=== PATIENT | female | born 1950 | race Caucasian/White ===

== ENCOUNTER 2018-03-04 10:45 | Outpatient (CLI) | payer OTHER ==
[~2018-03-04 10:45] MED LIST: ECOTRIN81 MG PO; HIZAAR; PRILOSEC10 MG PO; [UNRECOGNIZED DRUG - OTHER] PO
== END 2018-03-04 10:47 | disposition home or self-care (01) ==
LOC: SONOGRAMA 10:45
DX: E04.1 Nontoxic single thyroid nodule (principal)

== ENCOUNTER 2021-03-07 09:50 | Outpatient (CLI) | payer OTHER | END 2021-03-07 09:53 | disposition home or self-care (01) | LOC: SONOGRAMA 09:50 | PROVIDERS: ATTEND Pathology Anatomic Pathology & Clinical Pathology | DX: D34 Benign neoplasm of thyroid gland (principal); E04.2 Nontoxic multinodular goiter ==

== ENCOUNTER → 2022-12-05 | Outpatient (CLI) | payer OTHER | END | disposition home or self-care (01) | LOC: RAD 14:33 | PROVIDERS: ATTEND Physical Medicine & Rehabilitation | DX: M54.2 Cervicalgia (principal); M25.511 Pain in right shoulder ==